=== PATIENT | female | born 1970 | race Caucasian/White ===

== ENCOUNTER 2017-11-18 08:19 | Emergency (ER) | payer OTHER ==
[~2017-11-18] VITALS: Ht 177.8 cm; Wt 98.4 kg
[2017-11-18 08:20] VITALS: BP_SYST 146
[2017-11-18 08:55] VITALS: BP_SYST 146
== END 2017-11-18 08:55 | disposition home or self-care (01) ==
LOC: SED 08:19
DX: S93.602A Unspecified sprain of left foot, initial encounter (principal); X50.1XXA Overexertion from prolonged static or awkward postures, initial encounter; Y93.89 Activity, other specified; Y92.89 Other specified places as the place of occurrence of the external cause; Y99.8 Other external cause status
CPT/HCPCS: 99284

== ENCOUNTER 2021-08-29 09:54 | Emergency (ER) | payer OTHER ==
[~2021-08-29] VITALS: Ht 177.8 cm; Wt 49.4 kg
[2021-08-29 10:08] VITALS: BP_SYST 145
--- NOTE | 2021-08-29 10:16 | NUR ---
Patient to ER bed 4 to gown for evaluation. Side rails up. Report given to .
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
--- NOTE | 2021-08-29 10:20 | NUR ---
ER DR. LUEVANO AT THE BEDSIDE EXAMINING PT
[2021-08-29] MEDS ORDERED: IBUPROFEN 600 MG TABLET PO ONE (10:30)
[2021-08-29] MEDS ORDERED: HYDR-3917 PO (11:19)
[2021-08-29 11:45] VITALS: BP_SYST 145
--- NOTE | 2021-08-29 11:50 | NUR ---
Patient given written and verbal discharge instructions and verbalizes understanding. Dr. Ruslan DALEY MD discussed with patient the results and treatment provided. Patient in stable condition. ID arm band removed. Rx per MD. Patient educated on pain management and to follow up with PMD. Pain Scale 0/10. Opportunity for questions provided and answered. Medication side effect fact sheet provided.
== END 2021-08-29 11:45 | disposition home or self-care (01) ==
LOC: SED 09:54
DX: S20.212A Contusion of left front wall of thorax, initial encounter (principal); Z79.899 Other long term (current) drug therapy; V49.49XA Driver injured in collision with other motor vehicles in traffic accident, initial encounter; Y93.89 Activity, other specified; Y92.89 Other specified places as the place of occurrence of the external cause; Y99.8 Other external cause status
CPT/HCPCS: 71045; 71100; 99284